=== PATIENT | female | born 1960 | race African-American/Black ===

== ENCOUNTER 2018-03-13 03:37 | Emergency (ER) | payer MEDICARE, MEDICAID ==
[~2018-03-13] VITALS: Ht 172.7 cm; Wt 73.0 kg
[2018-03-13 04:51] LABS: CHLORIDE 110 mEq/L (98-107)
[2018-03-13 04:52] LABS: BASOPHILS % 0.6 % (0.0-2.0); EOSINOPHILS % 0.3 % (0.0-5.0); HEMATOCRIT. 42.4 % (36.0-48.0); HEMOGLOBIN. 14.3 g/dL (12.0-16.0); LYMPHOCYTES % 17.3 % (20.0-50.0); MEAN CORPUSCULAR HEMOGLOBIN 29.3 pg (28.0-32.0); MEAN CORPUSCULAR VOLUME 86.6 fL (81.0-99.0); MEAN PLATELET VOLUME 9.8 fl (7.4-10.4); MONOCYTES % 6.8 % (2.0-8.0); PLATELET 215 x1000/uL (130-400)
[2018-03-13 05:01] LABS: ETHANOL BLOOD < 10 mg/dL
[2018-03-13] MEDS ORDERED: POTASSIUM CHLORIDE 20MEQ TABLET SR PO SCH (05:35)
[2018-03-13 07:43] LABS: CLARITY URINE CLOUDY (CLEAR); COLOR URINE YELLOW (YELLOW); KETONES URINE 2+ (NEGATIVE); LEUKOCYTE ESTERASE URINE 2+ (NEGATIVE); NITRITE URINE NEGATIVE (NEGATIVE); OCCULT BLOOD URINE TRACE (NEGATIVE); PROTEIN URINE 1+ (NEGATIVE); SPECIFIC GRAVITY URINE 1.015 (1.005-1.030)
[2018-03-13 08:45] LABS: *COCAINE SCREEN URINE PRESUMTIVE POSITIVE (NEGATIVE)
[2018-03-13] MEDS ORDERED: CEPHALEXIN 500MG CAPSULE PO ONE (08:45)
[2018-03-13 08:47] LABS: *AMPHETAMINES SCREEN URINE NEGATIVE (NEGATIVE); *BARBITURATES SCREEN URINE NEGATIVE (NEGATIVE); *BENZODIAZEPINES SCREEN URINE NEGATIVE (NEGATIVE); CANNABINOID URINE SCREEN PRESUMTIVE POSITIVE (NEGATIVE); METHADONE URINE SCREEN NEGATIVE (NEGATIVE); OPIATES URINE SCREEN NEGATIVE (NEGATIVE); PHENCYCLIDINE URINE SCREEN NEGATIVE (NEGATIVE)
[2018-03-13] MEDS ORDERED: HALOPERIDOL LACTATE 5MG/ML VIAL IM ONE (10:30)
[2018-03-13] MEDS ORDERED: LORAZEPAM 2MG/ML CPJ IM PRN (10:30)
[2018-03-13] MEDS ORDERED: HYDROCODONE/ACETAMINOPHEN 5/325MG TABLET PO ONE (10:30)
[2018-03-14] MEDS ORDERED: HYDROCODONE/ACETAMINOPHEN 5/325MG TABLET PO ONE (00:15)
[2018-03-14] MEDS ORDERED: IBUPROFEN 800MG TABLET PO ONE (07:30)
[2018-03-14] MEDS: ACETAMINOPHEN 325MG TABLET PO PRN ×2 (09:45→09:46)
[2018-03-14 20:00] VITALS: BP 131/78
== END 2018-03-14 20:34 ==
LOC: ER 03:37
DX: F29 Unspecified psychosis not due to a substance or known physiological condition (principal); F31.9 Bipolar disorder, unspecified; F20.9 Schizophrenia, unspecified; I10 Essential (primary) hypertension; F14.10 Cocaine abuse, uncomplicated
CPT/HCPCS: 36415; 80053; 80305; 81003; 84484; 85025; 87086; 93005; 96372; 99285; G0482; J1630; J2060